=== PATIENT | female | born 1930 | race Caucasian/White ===

== ENCOUNTER 2018-03-25 06:44 | Emergency (ER) | payer MEDICARE, BC ==
--- NOTE | 2018-03-25 07:09 | ED Physician Documentation ---
PD HPI GI BLEED - Stated complaint Stated Complaint: RECTUAL BLEEDING - History obtained from History obtained from: Patient - History of Present Illness Timing - onset: Yesterday, How many days ago (05/27) Timing - duration: Days Timing - details: Abrupt onset (yesterday she had onset of some crampy lower abd pain, then 2-3 bouts of watery diarrhea, and today has continued with some watery/mucous diarrhea followed by bloody/rust colored diarrhea. Little abd pain today though. No vomiting, no general abd pain, no fever.), Still present PD PAST MEDICAL HISTORY - Present Medications Home Medications: Ambulatory Orders Medication Instructions Recorded Confirmed Cephalexin [Keflex] 500 mg PO TID #20 capsule 03/25/18 Metronidazole [Flagyl] 500 mg PO BID #14 tablet 03/25/18 Naproxen 375 mg PO BID #20 tablet 03/25/18 Ondansetron Odt [Zofran] 4 mg TL Q6H PRN #15 tablet 03/25/18 Tramadol HCl 50 mg PO Q6H PRN #20 tablet 03/25/18 - Allergies Allergies/Adverse Reactions: Allergies Allergy/AdvReac Type Severity Reaction Status Date / Time Sulfa (Sulfonamide AdvReac Unknown Verified 03/25/18 07:19 Antibiotics) PD ED PE NORMAL - Vitals Vital signs reviewed: Yes - General General: Alert and oriented X 3, No acute distress, Well developed/nourished - HEENT HEENT: Pharynx benign - Neck Neck: Supple, no meningeal sign, No adenopathy - Cardiac Cardiac: RRR, No murmur - Respiratory Respiratory: Clear bilaterally - Abdomen Abdomen: Normal bowel sounds, Soft, Non distended, No organomegaly, Other (some tenderness without guarding left lower abd. No percussion nor rebound generally. ) - Female Female : Deferred - Rectal Rectal: Other (soft to watery stool in vault, with some mucous. Small hemorrhoid not thromboses nor bleeding. There is some rust coloring to the diarrhea.) - Back Back: No CVA TTP - Derm Derm: Normal color, Warm and dry - Extremities Extremities: No deformity, No tenderness to palpate, Normal ROM s pain - Neuro Neuro: Alert and oriented X 3, No motor deficit, Normal speech Eye Opening: Spontaneous Motor: Obeys Commands Verbal: Oriented GCS Score: 15 Results - Vitals Vitals: Vital Signs - 24 hr 03/25/18 03/25/18 09:49 11:40 Heart Rate 71 70 Respiratory 14 12 Rate Blood Pressure 135/75 H 123/74 O2 Saturation 94 95 Oxygen O2 Source Room air - Labs Labs: Laboratory Tests 03/25/18 03/25/18 03/25/18 07:30 07:30 07:30 WBC 8.4 RBC 4.01 L Hgb 13.3 Hct 38.7 MCV 96.5 MCH 33.2 H MCHC 34.4 RDW 12.6 Plt Count 201 MPV 8.1 Neut # (Auto) 6.6 Lymph # (Auto) 1.1 L [place] # (Auto) 0.6 Eos # (Auto) 0.1 Baso # (Auto) 0.0 Absolute Nucleated RBC 0.00 Nucleated RBC % 0.0 Sodium 136 Potassium 3.9 Chloride 97 L Carbon Dioxide 26 Anion Gap 13.0 BUN 14 Creatinine 1.0 Estimated GFR (MDRD) 52 L Glucose 110 H Lactic Acid Calcium 9.8 Magnesium 1.9 Total Bilirubin 1.0 AST 28 ALT 20 Alkaline Phosphatase 75 Total Protein 7.5 Albumin 4.3 Globulin 3.2 Albumin/Globulin Ratio 1.3 Lipase 26 03/25/18 08:07 WBC RBC Hgb Hct MCV MCH MCHC RDW Plt Count MPV Neut # (Auto) Lymph # (Auto) [place] # (Auto) Eos # (Auto) Baso # (Auto) Absolute Nucleated RBC Nucleated RBC % Sodium Potassium Chloride Carbon Dioxide Anion Gap BUN Creatinine Estimated GFR (MDRD) Glucose Lactic Acid 1.2 Calcium Magnesium Total Bilirubin AST ALT Alkaline Phosphatase Total Protein Albumin Globulin Albumin/Globulin Ratio Lipase - Rads (name of study) abd/pelvic CT Radiology: Prelim report reviewed (see report - long segment of descending colitis), Discussed with rads (long segment of colitis but has flow to area so not appearing ischemic.) PD MEDICAL DECISION MAKING - ED course Complexity details: reviewed results (descending colitis long segment), re- evaluated patient (she is feeling well and prefers going home. She has good blood count, reasonable source for some bloody diarrhea and blood output rectally is small. There is just long segment of colitis descending, but with normal lactate and not much pain, so does not sound ischemic. ), considered differential, d/w patient Departure - Departure Disposition: 01 Home, Self Care Clinical Impression: Colitis presumed infectious Diarrhea Qualifiers: Diarrhea type: presumed infectious Qualified Code(s): R19.7 - Diarrhea, unspec ified Condition: Stable Record reviewed to determine appropriate education?: Yes Instructions: ED Diverticulitis Prescriptions: Cephalexin [Keflex] 500 mg PO TID #20 capsule Metronidazole [Flagyl] 500 mg PO BID #14 tablet Naproxen 375 mg PO BID #20 tablet Ondansetron Odt [Zofran] 4 mg TL Q6H PRN #15 tablet PRN Reason: Nausea / Vomiting Tramadol HCl 50 mg PO Q6H PRN #20 tablet PRN Reason: Pain Comments: There is a segment of inflammation and infection in the descending colon. This commonly can start has an infection from a small diverticulum so we treated like diverticulitis with antibiotics, anti-inflammatories and medicine for pain and nausea. Drink lots of fluids. Avoid roughage type foods in particular such as seeds and grains and poorly absorbed vegetables such as corn just until this is improved. Follow-up with your primary care if not improving well over the next several days and return sooner if worse. Discharge Date/Time: 03/25/18 11:51
[2018-03-25] MEDS ORDERED: SODIUM CHLORIDE 0.9% 1,000 ML IV ONE (07:44)
[2018-03-25] MEDS ORDERED: MORPHINE 2 MG/ML CARPUJECT IVP STA (07:47)
[2018-03-25] MEDS ORDERED: ONDANSETRON 4 MG/2 ML VIAL IVP STA (07:47)
[2018-03-25 07:54] LABS: BASOPHILS % (AUTO) 0.4 %; EOSINOPHILS # (AUTO) 0.1 10^3/uL (0.0-0.7); EOSINOPHILS % (AUTO) 1.2 %; HGB - HEMOGLOBIN 13.3 g/dL (12.0-16.0); LYMPHOCYTES # (AUTO) 1.1 10^3/uL (1.5-3.5); LYMPHOCYTES % (AUTO) 13.1 %; MEAN CORPUSCULAR HEMOGLOBIN 33.2 pg (27.0-31.0); MEAN CORPUSCULAR HGB CONC 34.4 g/dL (32.0-36.0); MEAN CORPUSCULAR VOLUME 96.5 fL (81.0-99.0); MEAN PLATELET VOLUME 8.1 fL (7.9-10.8); MONOCYTES # (AUTO) 0.6 10^3/uL (0.0-1.0); MONOCYTES % (AUTO) 6.7 %; NEUTROPHILS # (AUTO) 6.6 10^3/uL (1.5-6.6); NEUTROPHILS % (AUTO) 78.6 %; PLT - PLATELET COUNT 201 10^3/uL (130-450); RED BLOOD COUNT 4.01 10^6/uL (4.20-5.40); RED CELL DISTRIBUTION WIDTH 12.6 % (12.0-15.0); WHITE BLOOD COUNT 8.4 x10^3/uL (4.8-10.8)
[2018-03-25 08:08] LABS: ALBUMIN 4.3 g/dL (3.2-5.5); ALBUMIN/GLOBULIN RATIO 1.3 (1.0-2.2); CALCIUM 9.8 mg/dL (8.5-10.3); TOTAL PROTEIN 7.5 g/dL (6.7-8.2)
[2018-03-25] MEDS ORDERED: IOPAMIDOL-300 100 ML VIAL ONE (08:34)
[2018-03-25] MEDS ORDERED: IOPAMIDOL-300 100 ML VIAL IVP ONE (08:50)
--- NOTE | 2018-03-25 09:21 | CT Report ---
Reason: lower abd pain, diarrhea, bloody stool Procedure Date: 03/25/2018 Accession Number: [id number] / [id number] Procedure: CT - Abdomen/Pelvis W/ CPT Code: FULL RESULT: EXAM: CT ABDOMEN AND PELVIS EXAM DATE: 03/25/2018 08:44 AM. CLINICAL HISTORY: Lower abdominal pain, diarrhea, bloody stool. COMPARISONS: None. TECHNIQUE: Routine helical CT imaging was performed through the abdomen and pelvis. IV contrast: Isovue 300 100 mL. Enteric contrast: No. Reconstructions: Coronal and sagittal. In accordance with CT protocol optimization, one or more of the following dose reduction techniques were utilized for this exam: automated exposure control, adjustment of mA and/or KV based on patient size, or use of iterative reconstructive technique. FINDINGS: Lung Bases: Unremarkable. Liver: Normal. No masses. Gallbladder/Bile Ducts: Unremarkable. Spleen: Normal. Pancreas: Normal. Adrenal Glands: Normal. Kidneys: Kidneys contain cysts and hypodensities which are too small to characterize. No hydronephrosis or calculi. Peritoneal Cavity/Bowel: There is long segment colonic bowel wall thickening with pericolonic stranding of the sigmoid and descending colon reaching to the splenic flexure. No free fluid, free air or adenopathy. No masses. The appendix is well visualized and normal. Pelvic Organs: Normal. The bladder and visualized pelvic organs are within normal limits. Vasculature: Atherosclerosis without aneurysm. Bones: No significant abnormality. Other: None. IMPRESSION: Long segment colitis of the descending colon. [facility] CRITICAL RESULT: The findings were discussed with Dr. Eris Bryan on 03/25/2018 at 9:18 AM.
[2018-03-25] MEDS ORDERED: cefTRIAXone 1 GM VIAL IVP STA (09:30)
[2018-03-25] MEDS ORDERED: metroNIDAZOLE 500 MG/100 ML 500 MG/100 ML BAG IV ONE (09:30)
[2018-03-25 11:49] VITALS: BP 123/74
== END 2018-03-25 11:51 | disposition home or self-care (01) ==
LOC: ED 06:44
DX: A09 Infectious gastroenteritis and colitis, unspecified (principal); R19.7 Diarrhea, unspecified; R11.2 Nausea with vomiting, unspecified
CPT/HCPCS: 36415; 74177; 80053; 83605; 83690; 83735; 85025; 96361; 96365; 96375; 99283; Q9967